=== PATIENT | male | born 1940 | race Caucasian/White ===

== ENCOUNTER 2016-11-18 19:36 | Emergency (ER) | payer MEDICARE, BC ==
--- NOTE | ~2016-11-18 | ER ---
PATIENT'S NAME: VALENCIA MENJIVAR [facility] AGE: 76 Y [address] ROOM: [place] [address] LOCATION: [facility] ADMIT DATE: 11/18/2016 ER/Outpatient Report DISCHARGE DATE: 11/18/2016 FAMILY PHYSICIAN: Physician, Unknown ATTENDING PHYSICIAN: Bren Kan HISTORY OF PRESENT ILLNESS: The patient is a 76-year-old male, who is brought in by EMS for chief complaint of a fall down 6 stairs at home. He used his right arm to catch himself as he was falling, and they reported he broke his arm, so transported him to the hospital. The patient states he just tripped or missed his step and then fell down tried catching his arm. He denies hitting his head or hitting any other part of his body. He denies any lightheadedness or dizziness prior to the incident, and states that it is mildly tender on his elbow, but he is able to move it. The patient denies any chest pain, shortness of breath, nausea, vomiting, abdominal pain, fevers, chills, urinary symptoms, edema, or rash. PAST MEDICAL HISTORY: Includes end-stage renal disease, on dialysis; vzh-xpzyhxo-fwldocrub diabetes; chronic anemia; diabetic neuropathy; and hyper-phosphorus. CURRENT MEDICATIONS: On his chart and were reviewed by me and Dr. Kan. ALLERGIES: THE PATIENT HAS NO KNOWN MEDICAL ALLERGIES. SOCIAL HISTORY: The patient denies any drug or alcohol or tobacco use. PHYSICAL EXAMINATION: VITAL SIGNS: 83.3 kilos weight, blood pressure 152/66, pulse 73, respiratory rate 14, temp 96.6 TM, O2 of 95% on room air. GENERAL: The patient is in no acute distress. He is alert and oriented x4 and is independent with his ADLs. He appears well-nourished and hydrated. The patient rates his pain as a 5/10. CHEST: Clear to auscultation bilaterally. CARDIOVASCULAR: Regular rate and rhythm. No murmurs, rubs, or gallops. SKIN: Warm and dry. No rash. Skin overlying the lateral right elbow with a skin tear of approximately 1.5 to 2 cm. Normal range of motion of the right upper extremity including elbow, mildly tender to palpation surrounding the skin tear, otherwise nontender to palpation. No bony tenderness of the humerus or the wrist. Left upper extremity without abnormalities. Range of motion of bilateral hips intact without tenderness or pain. The patient has PATIENT'S NAME: VALENCIA MENJIVAR [facility] AGE: 76 Y [address] ROOM: [place], [place] [address] LOCATION: [facility] ADMIT DATE: 11/18/2016 ER/Outpatient Report DISCHARGE DATE: 11/18/2016 FAMILY PHYSICIAN: Physician, Unknown ATTENDING PHYSICIAN: Bren Kan 1+ pedal edema bilaterally. Otherwise, lower extremities without acute findings. ABDOMEN: Soft, nontender, nondistended. IMAGING DATA: Elbow x-ray obtained and is negative for acute fracture upon our read. Final read is pending. IMPRESSION: Fall with skin tear to lateral elbow. PLAN/EMERGENCY DEPARTMENT COURSE: Skin tear was cleansed and wrapped using gauze. Triple antibiotic ointment was placed prior to bandage placement. The patient was instructed to keep the area clean and dry and to follow up with his primary care in 2 to 3 days for re-evaluation to ensure the skin tear is healing. Counseled on fall prevention. GERARDO GILLIAM MED STUDENT, RESIDENT FOR MD RAÚL SILVER/leonor /[id number] d: 11/19/16 0113 t: 11/19/16 1848, OUTPATIENT REPORT
--- NOTE | ~2016-11-18 | ER ---
PATIENT'S NAME: VALENCIA MENJIVAR [facility] AGE: 76 Y [address] ROOM: [place] [address] LOCATION: [facility] ADMIT DATE: 11/18/2016 ER/Outpatient Report DISCHARGE DATE: 11/18/2016 FAMILY PHYSICIAN: Physician, Unknown ATTENDING PHYSICIAN: Bren Kan This is a 76-year-old male who presents with elbow pain after a fall. Please see Dr. Villagran's note as she has dictated. I did my own history and physical exam and I agree with her findings and assessment and plan. ADDENDUM:11/19/2016 6:30PM I received signout that the radiologist called back and stated that Mr. Menjivar had a large joint effusion so he likely had a fracture there. I called the patient at [phone] to let him know. Patient asked me, "What elbow?" when I informed him he had come in for a fall the day before. He states that his elbow is no longer bothering him because he has been taking tylenol and he thinks the swelling went down a lot. Patient also had no bony tenderness of the elbow on physical exam and just tenderness where he had a 2cm skin tear. He had full range of motion of his elbow as well, so my suspicion for actual elbow fracture was low. I informed him of the radiologist's findings and ask that he follow up with his primary care doctor, may need repeat XRays. MD REINA SIVLER/leonor /[id number] P d: 11/19/16 0408 t: 11/19/16 1845, OUTPATIENT REPORT
== END 2016-11-18 20:22 | disposition disaster alternative care site (69) ==
LOC: GACC 19:36
DX: S51.011A Laceration without foreign body of right elbow, initial encounter (principal); E11.22 Type 2 diabetes mellitus with diabetic chronic kidney disease; N18.6 End stage renal disease; W10.9XXA Fall (on) (from) unspecified stairs and steps, initial encounter

== ENCOUNTER → 2016-11-18 | Outpatient (CLI) | payer MEDICARE, BC ==
[~2016-11-18] MED LIST: AMARYL1 MG PO; APRESOLINE50 MG PO; COREG25 MG PO; COUMADIN ** IA5 MG PO; COZAAR100 MG PO; CRESTOR10 MG PO; DILANTIN100 MG PO; HYDROCODON-ACE1 EAC4; MUCINEX DM ER1 EAC1 PO; NORVASC5 MG PO; PHOSLO667 MG PO; PROTONIX40 MG PO; RENVELA800 MG PO; SEROQUEL25 MG PO; TYLENOL325 MG PO; VITAMIN E400 UNI2 PO
== END | disposition disaster alternative care site (69) ==
LOC: GAMB 19:28
DX: M79.601 Pain in right arm (principal); R29.6 Repeated falls; M25.521 Pain in right elbow; M25.511 Pain in right shoulder; E11.9 Type 2 diabetes mellitus without complications; N18.4 Chronic kidney disease, stage 4 (severe); W19.XXXA Unspecified fall, initial encounter
CPT/HCPCS: A0425; A0429